=== PATIENT | female | born 2000 | race Caucasian/White ===

== ENCOUNTER 2020-12-05 23:23 | Emergency (ER) | payer SELFPAY ==
[~2020-12-05] VITALS: Ht 165.1 cm; Wt 59.1 kg
[2020-12-06] MEDS ORDERED: LIDOCAINE 1% 10 ML VIAL ID ONE (01:15)
[2020-12-06 01:56] VITALS: BP 130/72
== END 2020-12-06 02:38 | disposition home or self-care (01) ==
LOC: EMS 23:26
DX: S01.81XA Laceration without foreign body of other part of head, initial encounter (principal); W22.8XXA Striking against or struck by other objects, initial encounter; Y93.41 Activity, dancing; Y92.89 Other specified places as the place of occurrence of the external cause; Y99.8 Other external cause status
CPT/HCPCS: 12011; 99282; J3490; 12013